=== PATIENT | female | born 1990 | race Caucasian/White ===

== ENCOUNTER 2016-11-07 07:48 | Emergency (ER) | payer SELFPAY ==
[~2016-11-07] VITALS: Ht 170.2 cm; Wt 68.2 kg
[~2016-11-07 07:48] MED LIST: ACYCLOVIR200 MG/5 M PO; ANAPROX DS550 MG PO; CEFTIN500 MG PO; DIAMOX SEQUELS500 M1 PO; FLEXERIL 1010 MG/TAB PO; HYDROCODONE/APAP PO; IMITREX100 MG PO; LEVAQUIN 5500 MG/TA1 PO; LORTAB 5/500 501 TAB PO; MUCINEX D1 TER PO; NORCO 325 MG-51 TAB PO; NORCO 325 MG-7.1 TAB PO; PERCOCET 325 MG1 TA2 PO; PHENERGAN 25 TA25 MG PO; PRENATAL1 TA1 PO; PROMETHAZINE12.5 M5 PO; PROVENTIL0.09 MG/A1 IH; ROXICODONE 55 MG/TAB PO; SENOKOT S 50 MG1 TAB PO; TUSS PO; ZOFRAN 4MG T4 MG/TAB PO; ZOFRAN ODT4 MG PO
[2016-11-07 07:58] VITALS: TEMP 98.7
[2016-11-07] MEDS ORDERED: BIRTH CONTROL PO (08:09)
[2016-11-07 09:56] VITALS: BP 95/64; PULSE 88
== END 2016-11-07 09:56 | disposition home or self-care (01) ==
LOC: COL.ER 07:48
DX: G43.909 Migraine, unspecified, not intractable, without status migrainosus (principal)
CPT/HCPCS: J1170; J1200; J1885; J2765; J7030

== ENCOUNTER 2016-11-11 10:24 | Emergency (ER) | payer SELFPAY ==
[~2016-11-11] VITALS: Ht 170.2 cm; Wt 66.8 kg
[~2016-11-11 10:24] MED LIST changes: +BIRTH CONTROL PO
[2016-11-11 10:26] VITALS: TEMP 98.2
[2016-11-11] MEDS ORDERED: COMPAZINE 110 MG/TAB PO (11:37)
[2016-11-11 11:50] VITALS: BP 120/84; PULSE 68
== END 2016-11-11 11:52 | disposition home or self-care (01) ==
LOC: COL.ER 10:24
DX: G43.909 Migraine, unspecified, not intractable, without status migrainosus (principal)
CPT/HCPCS: J1200; J2060; J2550; J7030

== ENCOUNTER → 2016-11-17 | Outpatient (REF) ==
[~2016-11-17] MED LIST changes: +BALZIVA 35 MCG-1 TAB PO; +COMPAZINE 110 MG/TAB PO; +FIORICET 325 MG1 TA1 PO; +REGLAN 10MG10 MG/TAB PO
== END ==
LOC: COL.LAB 05:41
DX: Z01.89 Encounter for other specified special examinations (principal)

== ENCOUNTER 2017-03-11 04:58 | Emergency (ER) | payer SELFPAY ==
[~2017-03-11] VITALS: Ht 170.2 cm; Wt 68.2 kg
[~2017-03-11 04:58] MED LIST changes: -BALZIVA 35 MCG-1 TAB PO; -FIORICET 325 MG1 TA1 PO; -REGLAN 10MG10 MG/TAB PO
[2017-03-11 05:02] VITALS: TEMP 98
[2017-03-11] MEDS ORDERED: BALZIVA 35 MCG-1 TAB PO (05:05)
[2017-03-11] MEDS ORDERED: FIORICET 325 MG1 TA1 PO (06:14)
[2017-03-11 06:47] VITALS: BP 114/82; PULSE 99
== END 2017-03-11 06:48 | disposition home or self-care (01) ==
LOC: COL.ER 04:58
DX: G43.909 Migraine, unspecified, not intractable, without status migrainosus (principal)
CPT/HCPCS: J1200; J1885; J2550; J7030

== ENCOUNTER 2017-04-05 22:45 | Emergency (ER) | payer SELFPAY ==
[~2017-04-05] VITALS: Ht 170.2 cm; Wt 68.2 kg
[~2017-04-05 22:45] MED LIST changes: +BALZIVA 35 MCG-1 TAB PO; +FIORICET 325 MG1 TA1 PO
[2017-04-05 22:50] VITALS: TEMP 98.3
[2017-04-05] MEDS ORDERED: REGLAN 10MG10 MG/TAB PO (23:20)
[2017-04-06 00:36] VITALS: BP 105/49; PULSE 82
== END 2017-04-06 00:56 | disposition home or self-care (01) ==
LOC: COL.ER 22:45
DX: G43.909 Migraine, unspecified, not intractable, without status migrainosus (principal); J45.909 Unspecified asthma, uncomplicated; Z98.890 Other specified postprocedural states; Z87.19 Personal history of other diseases of the digestive system
CPT/HCPCS: J1100; J1110; J1200; J2405; J2550; J2765; J7030

== ENCOUNTER 2017-11-19 09:06 | Emergency (ER) | payer SELFPAY ==
[~2017-11-19] VITALS: Ht 170.2 cm; Wt 72.7 kg
[~2017-11-19 09:06] MED LIST changes: +REGLAN 10MG10 MG/TAB PO
[2017-11-19 09:09] VITALS: BP 128/86
[2017-11-19] MEDS ORDERED: IMITREX50 MG PO (09:48)
[2017-11-19 12:17] VITALS: PULSE 90; TEMP 97
== END 2017-11-19 11:43 | disposition home or self-care (01) ==
LOC: COL.ER 09:06
DX: G43.909 Migraine, unspecified, not intractable, without status migrainosus (principal); Z90.89 Acquired absence of other organs; Z98.890 Other specified postprocedural states
CPT/HCPCS: J1100; J1200; J1885; J2550; J2765; J7030

== ENCOUNTER 2018-12-12 10:15 | Emergency (ER) | payer SELFPAY ==
[~2018-12-12] VITALS: Ht 170.2 cm; Wt 68.2 kg
[~2018-12-12 10:15] MED LIST changes: +IMITREX50 MG PO
[2018-12-12 10:18] VITALS: BP 126/82; TEMP 99.3
[2018-12-12 10:57] LABS: BASO % 0.4 % (0.0-2.0); EOS # 0.1 (0.0-0.7); EOS % 1.3 % (0-4.0); GRAN # 3.4 (1.4-6.5); GRAN % 65.1 % (42.2-75.2); HEMATOCRIT 41.4 % (37.0-47.0); HEMOGLOBIN 14.3 g/dl (12.5-16.0); LYMPH % 18.8 % (20.0-51.0); MEAN CELL VOLUME 86 fl (80.0-100.0); MEAN CORPUSCULAR HEMOGLOBIN 30 pg (27.0-31.0); MEAN CORPUSCULAR HGB CONC 35 g/dl (33.0-37.0); MEAN PLATELET VOLUME 10.5 fl (7.4-10.4); MONO # 0.7 (0.1-0.6); MONO % 14.2 % (1.7-9.3); PLATELET COUNT 291 K/mm3 (130-400); RED BLOOD COUNT 4.79 M/mm3 (4.10-5.30); REDCELL DISTRIBUTION WIDTH-CV 13.4 % (11.5-14.5)
[2018-12-12 11:40] LABS: COLLECTION METHOD CLEAN CATCH
[2018-12-12 11:54] LABS: MUCOUS Present /lpf; PH 6 (5-8); SQUAMOUS EPITHELIAL None Seen /hpf; URINE APPEARANCE Clear; URINE BACTERIA None Seen /hpf; URINE BILIRUBIN Negative (NEGATIVE); URINE BLOOD Negative (NEGATIVE); URINE COLOR Yellow; URINE GLUCOSE Negative (NEGATIVE); URINE KETONE Negative (NEGATIVE); URINE LEUKOCYTE ESTERASE 2+ (NEGATIVE); URINE NITRATE Negative (NEGATIVE); URINE PROTEIN(semi-quant) Negative (NEGATIVE); URINE RBC 0-2 /hpf; URINE UROBILINOGEN Negative (NEGATIVE)
[2018-12-12] MEDS ORDERED: CEPHALEXIN500 M1 PO (13:11)
[2018-12-12 13:19] VITALS: PULSE 99
== END 2018-12-12 13:20 | disposition home or self-care (01) ==
LOC: COL.ER 10:15
PROVIDERS: Emergency Medicine; Physician Assistant
DX: O20.0 Threatened abortion (principal); O23.91 Unspecified genitourinary tract infection in pregnancy, first trimester; Z3A.01 Less than 8 weeks gestation of pregnancy; Z98.890 Other specified postprocedural states; Z88.5 Allergy status to narcotic agent
CPT/HCPCS: J2405; J7030

== ENCOUNTER 2019-01-05 12:37 | Day surgery (SDC) | payer SELFPAY ==
[~2019-01-05] VITALS: Ht 170.2 cm; Wt 66.4 kg
[~2019-01-05 12:37] MED LIST changes: +CEPHALEXIN500 M1 PO
[2019-01-05 13:07] VITALS: BP 105/57; PULSE 97; TEMP 98.5
--- NOTE | 2019-01-05 13:41 | NUR ---
Patient admitted to room 3 ambulatory. Call light in reach.
[2019-01-05 14:41] VITALS: BP 114/64; PULSE 74
--- NOTE | 2019-01-05 14:41 | NUR ---
Patient returns to room 3 from surgery accompanied by Leticia OLMEDO and Chris HU. Patient is awake and talking. Temp 98 and room air sats 100%. Abdomen soft and flat and shankar pad dry. Denies pain or nausea. IV fluids infusing left hand. Site free of redness or swelling. Given sips of water.
[2019-01-05] MEDS ORDERED: PERCOCET 325 MG1 TA2 PO (14:45)
--- NOTE | 2019-01-05 14:46 | NUR ---
Resting and taking sips of water.
[2019-01-05 14:56] VITALS: BP 107/64; PULSE 79
--- NOTE | 2019-01-05 14:56 | NUR ---
Resting and friend Albert in room.
[2019-01-05 15:11] VITALS: BP 123/69; PULSE 89
[2019-01-05 15:26] VITALS: BP 110/69; PULSE 69
--- NOTE | 2019-01-05 15:26 | NUR ---
Room air sats 100%. Anjali pad remains dry. IV discontinued and patient is dressing self.
--- NOTE | 2019-01-05 15:35 | NUR ---
Given dismissal instructions and voices understanding of these. Provided script for Percocet and follow up appointment.
--- NOTE | 2019-01-05 15:40 | NUR ---
Patient dismissed to home per private vehicle driven by friend and taken to the car per wheelchair by RN and assisted into car with instructions in hand.
== END 2019-01-05 15:40 | disposition home or self-care (01) ==
LOC: SDCO 12:37
DX: O02.0 Blighted ovum and nonhydatidiform mole (principal); N85.00 Endometrial hyperplasia, unspecified; Z79.2 Long term (current) use of antibiotics; J45.909 Unspecified asthma, uncomplicated; Z87.891 Personal history of nicotine dependence
CPT/HCPCS: J2405; J2704; J3010; J7120

== ENCOUNTER 2019-01-14 13:18 | Day surgery (SDC) | payer SELFPAY ==
[~2019-01-14] VITALS: Ht 170.2 cm; Wt 65.9 kg
[2019-01-14] VITALS (9 sets, daily range): BP systolic 90–116; BP diastolic 52–74; PULSE 56–86; TEMP 97
[2019-01-14 13:46] LABS: BASO % 0.4 % (0.0-2.0); EOS # 0.2 (0.0-0.7); EOS % 1.9 % (0-4.0); GRAN # 7.4 (1.4-6.5); GRAN % 72.2 % (42.2-75.2); HEMOGLOBIN 12.5 g/dl (12.5-16.0); LYMPH # 1.8 (1.2-3.4); LYMPH % 17.1 % (20.0-51.0); MEAN CELL VOLUME 86 fl (80.0-100.0); MEAN CORPUSCULAR HEMOGLOBIN 30 pg (27.0-31.0); MEAN CORPUSCULAR HGB CONC 34 g/dl (33.0-37.0); MEAN PLATELET VOLUME 10.2 fl (7.4-10.4); MONO # 0.8 (0.1-0.6); PLATELET COUNT 285 K/mm3 (130-400); REDCELL DISTRIBUTION WIDTH-CV 13.2 % (11.5-14.5)
[2019-01-14 13:54] LABS: ALBUMIN 4.2 gm/dL (3.5-5.0); BILIRUBIN,TOTAL 0.5 mg/dL (0.0-1.0); CALCIUM 8.9 mg/dL (8.4-10.2); CREATININE, serum 0.64 (0.52-1.25); HEMATOCRIT 36.3 % (37.0-47.0); POTASSIUM 3.6 mmol/L (3.4-5.0); TOTAL PROTEIN 7.1 gm/dL (6.4-8.2)
[2019-01-14 14:04] LABS: C-REACTIVE PROTEIN 0.5 mg/dL (0.0-0.9)
--- NOTE | 2019-01-14 18:30 | NUR ---
Pt arrived on unit via bed from PACU. Report received. Oriented to room, bed and call light within reach. Plan of care reviewed.
[2019-01-14] MEDS ORDERED: DOXYCYCLINE 10100 MG PO (18:39)
[2019-01-14] MEDS ORDERED: FLAGYL500 MG PO (18:39)
[2019-01-14] MEDS ORDERED: PERCOCET 325 MG1 TA2 PO (18:40)
--- NOTE | 2019-01-14 21:20 | NUR ---
Discharge and follow up instructions with precautions reviewed with pt and friend at the bedside. Pt discharged home ambulatory escorted by staff and friend.
== END 2019-01-14 21:20 | disposition home or self-care (01) ==
LOC: COL.ER 13:18 → SDCO 18:12
PROVIDERS: Family Medicine
DX: O02.1 Missed abortion (principal); N92.1 Excessive and frequent menstruation with irregular cycle; J45.909 Unspecified asthma, uncomplicated; Z88.5 Allergy status to narcotic agent; Z88.6 Allergy status to analgesic agent; Z87.891 Personal history of nicotine dependence
CPT/HCPCS: J0690; J2210; J2270; J2405; J2704; J3010; J7030; J7120

== ENCOUNTER 2019-06-02 18:06 | Emergency (ER) | payer SELFPAY ==
[~2019-06-02] VITALS: Ht 170.2 cm; Wt 68.2 kg
[~2019-06-02 18:06] MED LIST changes: +DOXYCYCLINE 10100 MG PO; +FLAGYL500 MG PO
[2019-06-02 18:28] VITALS: BP 113/69; TEMP 98.9
[2019-06-02] MEDS ORDERED: ORTHO TRI-CYCLE1 TAB PO (18:32)
[2019-06-02] MEDS ORDERED: NORCO 325 MG-51 TAB PO (22:28)
[2019-06-02 22:39] VITALS: PULSE 84
== END 2019-06-02 22:41 | disposition home or self-care (01) ==
LOC: COL.ER 18:06
DX: S92.002A Unspecified fracture of left calcaneus, initial encounter for closed fracture (principal); S92.001A Unspecified fracture of right calcaneus, initial encounter for closed fracture; G43.909 Migraine, unspecified, not intractable, without status migrainosus; Z88.5 Allergy status to narcotic agent; Z87.891 Personal history of nicotine dependence; W17.89XA Other fall from one level to another, initial encounter; Y92.009 Unspecified place in unspecified non-institutional (private) residence as the place of occurrence of the external cause

== ENCOUNTER → 2019-09-21 | Outpatient (CLI) | payer BC ==
[~2019-09-21] MED LIST changes: +ORTHO TRI-CYCLE1 TAB PO
== END ==
LOC: COL.LAB 11:01
DX: Z32.01 Encounter for pregnancy test, result positive (principal)

== ENCOUNTER → 2019-09-24 | Outpatient (CLI) | payer BC | LOC: COL.RAD 10:37 | DX: N91.2 Amenorrhea, unspecified (principal); Z32.01 Encounter for pregnancy test, result positive ==

== ENCOUNTER 2020-10-01 17:57 | Emergency (ER) | payer SELFPAY ==
[~2020-10-01] VITALS: Ht 170.2 cm; Wt 70.5 kg
[2020-10-01 17:59] VITALS: TEMP 98.2
[2020-10-01 18:36] LABS: ALBUMIN 3.7 gm/dL (3.5-5.0); BILIRUBIN,TOTAL 0.2 mg/dL (0.0-1.0); C-REACTIVE PROTEIN 0.5 mg/dL (0.0-0.9); CALCIUM 8.5 mg/dL (8.4-10.2); CREATININE, serum 0.82 (0.52-1.25); POTASSIUM 3.6 mmol/L (3.4-5.0); TOTAL PROTEIN 6.3 gm/dL (6.4-8.2)
[2020-10-01 18:41] LABS: BASO % 0.2 % (0.0-2.0); EOS % 0.3 % (0-4.0); GRAN # 7.7 (1.4-6.5); GRAN % 72.5 % (42.2-75.2); LYMPH % 18.4 % (20.0-51.0); MEAN CELL VOLUME 83 fl (80.0-100.0); MEAN CORPUSCULAR HGB CONC 35 g/dl (33.0-37.0); MEAN PLATELET VOLUME 10.2 fl (7.4-10.4); MONO # 0.9 (0.1-0.6); MONO % 8.3 % (1.7-9.3); PLATELET COUNT 416 K/mm3 (130-400); REDCELL DISTRIBUTION WIDTH-CV 13.6 % (11.5-14.5)
[2020-10-01 18:53] LABS: HEMATOCRIT 26.4 % (37.0-47.0); HEMOGLOBIN 9.2 g/dl (12.5-16.0); MEAN CORPUSCULAR HEMOGLOBIN 29 pg (27.0-31.0)
[2020-10-01 19:36] VITALS: BP 113/87; PULSE 87
== END 2020-10-01 19:36 | disposition home or self-care (01) ==
LOC: COL.ER 17:57
PROVIDERS: Nurse Practitioner Primary Care
DX: R07.89 Other chest pain (principal); R11.0 Nausea; Z20.822 Contact with and (suspected) exposure to COVID-19; Z88.6 Allergy status to analgesic agent
CPT/HCPCS: J1200; J2405; J7030

== ENCOUNTER 2020-10-04 19:34 | Inpatient (IN) | payer SELFPAY ==
[~2020-10-04] VITALS: Ht 170.2 cm; Wt 72.7 kg
[2020-10-04 20:10] LABS: BASO % 0.2 % (0.0-2.0); EOS % 0.3 % (0-4.0); GRAN # 6.8 (1.4-6.5); GRAN % 73.8 % (42.2-75.2); LYMPH # 1.5 (1.2-3.4); LYMPH % 16.4 % (20.0-51.0); MEAN CELL VOLUME 85 fl (80.0-100.0); MEAN CORPUSCULAR HGB CONC 34 g/dl (33.0-37.0); MEAN PLATELET VOLUME 10.1 fl (7.4-10.4); MONO # 0.8 (0.1-0.6); MONO % 8.9 % (1.7-9.3); PLATELET COUNT 475 K/mm3 (130-400); RED BLOOD COUNT 2.74 M/mm3 (4.10-5.30)
[2020-10-04 20:13] LABS: HEMATOCRIT 23.2 % (37.0-47.0); HEMOGLOBIN 7.8 g/dl (12.5-16.0); MEAN CORPUSCULAR HEMOGLOBIN 28 pg (27.0-31.0)
[2020-10-04 20:14] LABS: INR 1.1 (0.8-3.0); PROTHROMBIN TIME 11.8 SECONDS (9.7-12.8)
[2020-10-04 20:18] LABS: BILIRUBIN,TOTAL 0.4 mg/dL (0.0-1.0); CALCIUM 8.8 mg/dL (8.4-10.2); CREATININE, serum 0.66 (0.52-1.25); POTASSIUM 3.7 mmol/L (3.4-5.0); TOTAL PROTEIN 6.9 gm/dL (6.4-8.2)
[2020-10-04 22:26] LABS: COLLECTION METHOD CLEAN CATCH
[2020-10-04 22:46] LABS: MUCOUS Present /lpf; PH 6 (5-8); SQUAMOUS EPITHELIAL 0-2 /hpf; URINE APPEARANCE Clear; URINE BACTERIA Rare /hpf; URINE BILIRUBIN Negative (NEGATIVE); URINE BLOOD 1+ (NEGATIVE); URINE COLOR Straw; URINE GLUCOSE Negative (NEGATIVE); URINE KETONE Negative (NEGATIVE); URINE LEUKOCYTE ESTERASE Negative (NEGATIVE); URINE NITRATE Negative (NEGATIVE); URINE PROTEIN(semi-quant) Negative (NEGATIVE); URINE RBC 0-2 /hpf; URINE UROBILINOGEN Negative (NEGATIVE); URINE WBC 0-2 /hpf
[2020-10-05] VITALS (9 sets, daily range): BP systolic 94–127; BP diastolic 58–72; PULSE 62–90; TEMP 97.9–98.9
[2020-10-05] MEDS ORDERED: PERCOCET 325 MG1 TA2 PO (01:07)
--- NOTE | 2020-10-05 01:45 | NUR ---
0145- REPORT RECEIVED FROM SUZANNE OLMEDO WITH OR. 0150- PT TO ROOM 222 PER BED, SEDATED BUT AROUSES TO NAME. BEDSIDE HANDOFF COMPLETED. PT ASSISTED UP TO BATHROOM CHARTED. MINIMAL BLEEDING ON PERIPAD, CLEAN PAD PROVIDED.
[2020-10-05 05:18] LABS: HEMATOCRIT 28.7 % (37.0-47.0); HEMOGLOBIN 9.5 g/dl (12.5-16.0)
[2020-10-05] MEDS ORDERED: FERROUS SU325 MG/TAB PO (11:35)
== END 2020-10-05 12:35 | disposition home or self-care (01) | DRG 817 ==
LOC: COL.ER 19:34 → OB 22:24
PROVIDERS: Emergency Medicine; ADMIT Obstetrics & Gynecology
PROC: 0W9F3ZZ Drainage of Abdominal Wall, Percutaneous Approach (ICD-10-PCS; 2020-10-04)
PROC: 10T24ZZ Resection of Products of Conception, Ectopic, Percutaneous Endoscopic Approach (ICD-10-PCS; principal; 2020-10-04 23:30)
PROC: 0UT54ZZ Resection of Right Fallopian Tube, Percutaneous Endoscopic Approach (ICD-10-PCS; 2020-10-04 23:30)
PROC: 0UT04ZZ Resection of Right Ovary, Percutaneous Endoscopic Approach (ICD-10-PCS; 2020-10-04 23:30)
DX: O00.201 Right ovarian pregnancy without intrauterine pregnancy (principal); K66.1 Hemoperitoneum; D62 Acute posthemorrhagic anemia; R19.09 Other intra-abdominal and pelvic swelling, mass and lump; O99.511 Diseases of the respiratory system complicating pregnancy, first trimester; O99.011 Anemia complicating pregnancy, first trimester; J45.909 Unspecified asthma, uncomplicated; Z88.6 Allergy status to analgesic agent
CPT/HCPCS: J0330; J0690; J1100; J1885; J2405; J2704; J2710; J3010; J7030; J7050; J7120; P9016